=== PATIENT | male | born 1985 | race Two or more races ===

== ENCOUNTER 2016-08-23 16:28 | Emergency (ER) | payer MEDICAID ==
[~2016-08-23] VITALS: Ht 175.3 cm; Wt 113.4 kg
[2016-08-23 16:45] VITALS: BP 130/80
[2016-08-23] MEDS ORDERED: methylPREDNISolone SOD SUCC 125 MG/2 ML VL IM ONE (17:30)
[2016-08-23] MEDS ORDERED: cefTRIAXone SOD 1,000 MG VL IM ONE (17:30)
== END 2016-08-23 18:16 | disposition home or self-care (01) ==
LOC: ER 16:33
DX: J03.00 Acute streptococcal tonsillitis, unspecified (principal); H66.93 Otitis media, unspecified, bilateral
CPT/HCPCS: 96372; 99284; J0696; J2930